=== PATIENT | female | born 1980 | race Caucasian/White ===

== ENCOUNTER 2016-09-08 23:33 | Emergency (ER) | payer BC, OTHER | END 2016-09-09 03:29 | disposition home or self-care (01) | DX: R07.9 Chest pain, unspecified (principal); Z82.41 Family history of sudden cardiac death; F17.200 Nicotine dependence, unspecified, uncomplicated ==

== ENCOUNTER 2022-04-13 08:00 | Outpatient (CLI) | payer BC ==
--- NOTE | 2022-04-13 10:38 | XRAY Report ---
PROCEDURE: Knee 3 View RT INDICATIONS: RIGHT KNEE PAIN TECHNIQUE: 3 views of the right knee(s) were acquired. COMPARISON: None. FINDINGS: Bones: No fractures or dislocations. No suspicious bony lesions. Soft tissues: No joint effusion. No suspicious soft tissue calcifications. IMPRESSION: No acute finding. Reviewed by: Kyle Sommer MD on 04/13/2022 10:36 AM PDT Approved by: Kyle Sommer MD on 04/13/2022 10:36 AM PDT Station ID: [id number]
== END 2022-04-13 08:01 | disposition home or self-care (01) ==
LOC: DI.S 08:00
PROVIDERS: ATTEND Physician Assistant Medical
DX: M25.561 Pain in right knee (principal)

== ENCOUNTER 2023-11-25 14:59 | Outpatient (CLI) | payer OTHER ==
--- NOTE | 2023-11-26 10:24 | Mammography Report ---
BILATERAL FIRST EVER DIGITAL SCREENING MAMMOGRAM 3D/2D: 11/25/2023 CLINICAL: Routine screening. Family history of breast cancer. Baseline exam. No prior exams were available for comparison. There are scattered areas of fibroglandular density in both breasts (category b / 25%-50% glandular t issue). There is an oval equal density focal asymmetry in the right breast at 10 o'clock middle depth. There is an oval asymmetry in the left breast at 12 o'clock middle depth. No other significant masses or calcifications are seen in either breast. IMPRESSION: INCOMPLETE: NEEDS ADDITIONAL IMAGING EVALUATION The oval equal density focal asymmetry in the right breast at 10 o'clock middle depth resembles a cys t or a lymph node and is indeterminate. Additional views with possible ultrasound are recommended. The oval asymmetry in the left breast at 12 o'clock middle depth resembles a cyst, a lymph node, or a fibroadenoma and is indeterminate. Additional views with possible ultrasound are recommended. Based on the Tyrer Cuzick model (a risk assessment model) the patient's lifetime risk is 14.1% and he r 10 year risk is 2.3%. According to the ACR, ACS, and NCCN guidelines, an annual breast MRI exam viri ng with mammogram is recommended if the patient's lifetime risk is 20% or greater. This exam was interpreted at Station ID: [id number]. NOTE: For mammograms, a report in lay terms will be sent to the patient. Approximately 15% of breast malignancies will not be visualized mammographically. In the management of a palpable breast mass, a negative mammogram must not discourage biopsy of a clinically suspicious lesion. Electronically Signed By: Kevin Ashby M.D. aty/:11/26/2023 07:33:05 ACR BI-RADS Category 0: Incomplete 3340F PARENCHYMAL PATTERN: (A) - The breast(s) demonstrate(s) scattered fibroglandular densities. BI-RADS CATEGORY: (0) - 0 Mammo and [place] [id number] Immediate follow-up LATERALITY: (B)
== END 2023-11-25 15:00 | disposition home or self-care (01) ==
LOC: DI.S 14:59
DX: Z12.31 Encounter for screening mammogram for malignant neoplasm of breast (principal); R92.8 Other abnormal and inconclusive findings on diagnostic imaging of breast; R92.323 Mammographic fibroglandular density, bilateral breasts; Z80.3 Family history of malignant neoplasm of breast

== ENCOUNTER 2024-01-20 13:25 | Outpatient (CLI) | payer OTHER ==
--- NOTE | 2024-01-21 10:17 | Mammography Report ---
BILATERAL DIGITAL DIAGNOSTIC MAMMOGRAM 3D/2D WITH SPOT COMPRESSION: 01/20/2024 CLINICAL: Patient returns today to evaluate asymmetries in bilateral breasts. Comparison is made to exam dated: 11/25/2023 mammogram - [facility]. There are scattered areas of fibroglandular density in both breasts (category b / 25%-50% glandular t issue). There is an oval focal asymmetry in the right breast at 10 o'clock middle depth. This is seen in add itional views. There is an oval focal asymmetry in the left breast central to the nipple middle depth. No other significant masses or calcifications are seen in either breast. IMPRESSION: INCOMPLETE: NEEDS ADDITIONAL IMAGING EVALUATION The oval focal asymmetry in the right breast at 10 o'clock middle depth is indeterminate. An ultraso und is recommended. The oval focal asymmetry in the left breast central to the nipple middle depth is indeterminate. An ultrasound is recommended. Based on the Tyrer Cuzick model (a risk assessment model) the patient's lifetime risk is 14.1% and he r 10 year risk is 2.3%. According to the ACR, ACS, and NCCN guidelines, an annual breast MRI exam viri ng with mammogram is recommended if the patient's lifetime risk is 20% or greater. This exam was interpreted at Station ID: [id number]. NOTE: For mammograms, a report in lay terms will be sent to the patient. Approximately 15% of breast malignancies will not be visualized mammographically. In the management of a palpable breast mass, a negative mammogram must not discourage biopsy of a clinically suspicious lesion. Electronically Signed By: Prakash breen/pennie:01/20/2024 14:35:18 ACR BI-RADS Category 0: Incomplete 3340F PARENCHYMAL PATTERN: (A) - The breast(s) demonstrate(s) scattered fibroglandular densities. BI-RADS CATEGORY: (0) - 0 Ultrasound [id number] Immediate follow-up LATERALITY: (B)
--- NOTE | 2024-01-21 10:17 | Ultrasound Report ---
LIMITED ULTRASOUND OF RIGHT BREAST: 01/20/2024 CLINICAL: Patient returns today to evaluate a focal asymmetry in the right breast. Comparison is made to exams dated: 01/20/2024 ultrasound, 01/20/2024 mammogram, and 11/25/2023 mammogram - [facility]. Real-time ultrasound of the right breast 9-10 o'clock region was performed. Templeton scale images of the real-time examination were reviewed. No significant abnormalities were seen sonographically in the right breast. IMPRESSION: PROBABLY BENIGN There is no abnormality seen in the right breast to correspond with the mammography finding. A follow-up mammogram in 6 months is recommended to demonstrate stability. This exam was interpreted at Station ID: [id number]. Electronically Signed By: Prakash Sweet M.D. lc/:01/20/2024 14:35:49 Ultrasound BI-RADS: 3 Probably benign BI-RADS CATEGORY: (3) - 3 Mammogram [id number] 6 month follow-up LATERALITY: (B)
--- NOTE | 2024-01-21 10:17 | Ultrasound Report ---
LIMITED ULTRASOUND OF LEFT BREAST: 01/20/2024 CLINICAL: Patient returns today to evaluate a focal asymmetry in the left breast. Comparison is made to exams dated: 11/25/2023 mammogram and 01/20/2024 mammogram - [facility]. Ultrasound of the left breast retroareolar was performed. Templeton scale images of the real-time examin ation were reviewed. There is a possible 0.4 cm x 0.2 cm x 0.3 cm complicated cyst in the left breast central to the nippl e middle depth. This correlates with mammography findings. IMPRESSION: PROBABLY BENIGN The possible 0.4 cm x 0.2 cm x 0.3 cm complicated cyst in the left breast is probably benign. A follow-up mammogram and an ultrasound in 6 months is recommended to demonstrate stability. This exam was interpreted at Station ID: [id number]. Electronically Signed By: Prakash Sweet M.D. lc/:01/20/2024 14:38:06 Ultrasound BI-RADS: 3 Probably benign BI-RADS CATEGORY: (3) - 3 Mammo and [place] [id number] 6 month follow-up LATERALITY: (B)
== END 2024-01-20 13:26 | disposition home or self-care (01) ==
LOC: DI 13:25
PROVIDERS: ATTEND Registered Nurse
DX: R92.8 Other abnormal and inconclusive findings on diagnostic imaging of breast (principal); R92.323 Mammographic fibroglandular density, bilateral breasts